=== PATIENT | male | born 1995 | race Caucasian/White ===

== ENCOUNTER 2019-09-03 13:10 | Emergency (ER) | payer BC ==
[2019-09-03] MEDS ORDERED: HYDROCODONE/ACETAMINOPHEN 10-325 MG TABLET PO ONE (13:28)
[2019-09-03] MEDS ORDERED: ONDANSETRON 4 MG TAB.RAPDIS PO ONE (13:29)
--- NOTE | 2019-09-03 13:32 | ER Document Report ---
ED Medical Screen (RME) - General Chief Complaint: Flank Pain Stated Complaint: FLANK PAIN,NAUSEA,VOMITING Time Seen by Provider: 09/03/19 13:15 - HPI Notes: 09/03/19 13:28 24-year-old male presents to the emergency room for complaints of left flank pain radiating to his abdomen and complaining of bilateral testicular pain since 10:00 this morning. States that he was able to void this morning but has been unable to void since then. Denies any trauma to his abdomen or to his testicles. Reports pain is 5 out of 5. Denies any history of kidney stones, denies any abdominal surgeries. Denies any fevers or chills. Reports he is also vomiting with nausea. Denies any fevers or chills. Has not tried any [id number] medications. I have greeted and performed a rapid initial assessment of this patient. Due to being in triage, without an examination table, unable to perform a examination at this time. A comprehensive ED assessment and evaluation of the patient, analysis of test results and completion of the medical decision making process will be conducted by additional ED providers. PHYSICAL EXAMINATION: GENERAL: Well-appearing, well-nourished and in moderate distress, diaphoretic HEAD: Atraumatic, normocephalic. EYES: Pupils equal round extraocular movements intact, conjunctiva are normal. NECK: Normal range of motion CV: s1, s2 regular LUNGS: No respiratory distress abd: Less CVA tenderness on palpation, left lower quadrant abdominal pain on palpation, left upper quadrant abdominal pain on palpation. 09/03/19 13:30 Physical Exam - Vital signs Vitals: Temp Pulse Resp BP Pulse Ox 97.4 F 52 L 18 141/102 H 97 09/03/19 13:17 09/03/19 13:17 09/03/19 13:17 09/03/19 13:17 09/03/19 13:17 Course - Vital Signs Vital signs: Temp Pulse Resp BP Pulse Ox 97.4 F 52 L 18 141/102 H 97 09/03/19 13:17 09/03/19 13:17 09/03/19 13:17 09/03/19 13:17 09/03/19 13:17
[2019-09-03] MEDS ORDERED: KETOROLAC TROMETHAMINE INJ/PF 30 MG/1 ML SDV IV ONE (13:53)
[2019-09-03 14:01] LABS: ABSOLUTE BASOPHILS # (AUTO) 0.1 10^3/uL (0.0-0.2); ABSOLUTE EOSINOPHILS # (AUTO) 0.1 10^3/uL (0.0-0.6); ABSOLUTE LYMPHOCYTES (AUTO) 1.8 10^3/uL (0.5-4.7); ABSOLUTE MONOCYTES (AUTO) 0.7 10^3/uL (0.1-1.4); ABSOLUTE NEUT (AUTO) 11.6 10^3/uL (1.7-8.2); BASOPHILS % (AUTO) 0.5 % (0-2); EOSINOPHILS % (AUTO) 0.7 % (0-6); HEMATOCRIT 43.5 % (37.9-51.0); HEMOGLOBIN 14.9 g/dL (13.5-17.0); LYMPHOCYTES % (AUTO) 12.8 % (13-45); MEAN CORPUSCULAR HEMOGLOBIN 29.4 pg (27.0-33.4); MEAN CORPUSCULAR HGB CONC 34.3 g/dL (32.0-36.0); MEAN CORPUSCULAR VOLUME 86 fl (80-97); PLATELET COUNT 336 10^3/uL (150-450); RED BLOOD COUNT 5.07 10^6/uL (4.35-5.55); RED CELL DISTRIBUTION WIDTH 13.4 % (11.5-14.0); TOTAL CELLS COUNTED % (AUTO) 100 %; WHITE BLOOD COUNT 14.4 10^3/uL (4.0-10.5)
[2019-09-03 14:21] LABS: ALBUMIN 4.7 g/dL (3.5-5.0); ALKALINE PHOSPHATASE 88 U/L (38-126); ANION GAP 9 (5-19); ASPARTATE AMINO TRANSFERASE 29 U/L (17-59); BILIRUBIN,TOTAL 0.7 mg/dL (0.2-1.3); BLOOD UREA NITROGEN 13 mg/dL (7-20); CALCIUM 9.7 mg/dL (8.4-10.2); CARBON DIOXIDE 25 mmol/L (22-30); CHLORIDE 106 mmol/L (98-107); GLUCOSE 120 mg/dL (75-110); POTASSIUM 4.4 mmol/L (3.6-5.0); TOTAL PROTEIN 8.1 g/dL (6.3-8.2)
--- NOTE | 2019-09-03 14:58 | RADIOLOGY REPORT (SQ) ---
EXAM DESCRIPTION: U/S SCROTUM W/DOPPLER IMAGES COMPLETED DATE/TIME: 09/03/2019 2:35 pm REASON FOR STUDY: bilateral testicular pain, can't void, [id number] COMPARISON: None. TECHNIQUE: Static and realtime paz scale imaging of the scrotum and testes. Selected color Doppler and spectral images recorded to document blood flow. LIMITATIONS: Patient movement. FINDINGS: RIGHT: TESTICLE: Normal size. Normal echotexture. Normal blood flow. No mass. EPIDIDYMIS: Normal. HYDROCELE OR VARICOCELE: No. HERNIA OR EXTRA-TESTICULAR MASS: No. OTHER: No other significant finding. LEFT: TESTICLE: Normal size. Normal echotexture. Normal blood flow. No mass. EPIDIDYMIS: Normal. HYDROCELE OR VARICOCELE: No. HERNIA OR EXTRA-TESTICULAR MASS: No. OTHER: There is questionable thickening of the wall of the scrotum that measures 6 mm. IMPRESSION: Normal testicles. No evidence of epididymitis. Questionable thickening of the wall of the scrotum measuring 6 mm. TECHNICAL DOCUMENTATION: JOB ID: [id number] 2010 [employer]- All Rights Reserved Reading location - IP/workstation name: [email or web address]
[2019-09-03 15:03] LABS: APPEARANCE,URINE CLEAR; BILIRUBIN,URINE NEGATIVE (NEGATIVE); CALCIUM OXALATE CRYSTALS,URINE FEW /HPF; COLOR,URINE YELLOW; GLUCOSE, URINE NEGATIVE (NEGATIVE); KETONES,URINE NEGATIVE (NEGATIVE); LEUKOCYTE ESTERASE,URINE NEGATIVE (NEGATIVE); NITRITE,URINE NEGATIVE (NEGATIVE); PROTEIN,URINE 30 mg/dL (NEGATIVE); URINE SPECIFIC GRAVITY 1.028; UROBILINOGEN,URINE NEGATIVE mg/dL (<2.0)
--- NOTE | 2019-09-03 15:07 | RADIOLOGY REPORT (SQ) ---
EXAM DESCRIPTION: CT ABD/PELVIS WITH IV ONLY IMAGES COMPLETED DATE/TIME: 09/03/2019 2:42 pm REASON FOR STUDY: Left flank pain, radiating to abd, +vomiting COMPARISON: None. TECHNIQUE: CT scan of the abdomen and pelvis performed using helical scanning technique with dynamic intravenous contrast injection. No oral contrast. Images reviewed with lung, soft tissue, and bone windows. Reconstructed coronal and sagittal MPR images reviewed. Delayed images for evaluation of the urinary system also acquired. All images stored on PACS. All CT scanners at this facility use dose modulation, iterative reconstruction, and/or weight based d osing when appropriate to reduce radiation dose to as low as reasonably achievable (ALARA). [facility]: Dose Right [facility]: CareDose [facility]: Dose Right [facility]: Teradose 4D [facility]: [employer] CONTRAST TYPE AND DOSE: contrast/concentration: Isovue 350.00 mmol/ml; Total Contrast Delivered: 100 .0 ml; Total Saline Delivered: 25.3 ml RENAL FUNCTION: None required. The patient is less than 50 years old. RADIATION DOSE: CT Rad equipment meets quality standard of care and radiation dose reduction techniq ues were employed. CTDIvol: 19.2 - 21.1 mGy. DLP: 2552 mGy-cm.. LIMITATIONS: None. FINDINGS: LOWER CHEST: No significant findings. No nodules or infiltrates. LIVER: The liver is diffusely, mildly hypoattenuating. No masses. SPLEEN: Normal size. No focal lesions. PANCREAS: No masses. No significant calcifications. No adjacent inflammation or peripancreatic fluid collections. Pancreatic duct not dilated. GALLBLADDER: No identified stones by CT criteria. No inflammatory changes to suggest cholecystitis. ADRENAL GLANDS: No significant masses or asymmetry. RIGHT KIDNEY AND URETER: No solid masses. No significant calcifications. No hydronephrosis or hyd roureter. LEFT KIDNEY AND URETER: No solid masses. Somewhat ill-defined opacification. No significant excreti on of contrast on the delayed images. Mild perinephric stranding. No significant calcifications. No hydronephrosis or hydroureter. AORTA AND VESSELS: No aneurysm. No dissection. Renal arteries, SMA, celiac without stenosis. RETROPERITONEUM: No retroperitoneal adenopathy, hemorrhage or masses. BOWEL AND PERITONEAL CAVITY: No masses or inflammatory changes. No free fluid or peritoneal masses. APPENDIX: Normal. PELVIS: The bladder is incompletely filled. Cannot exclude a bladder wall nodule posterolaterally on the left. See image 93 series 5. ABDOMINAL WALL: No masses. No hernias. BONES: No significant or acute findings. OTHER: No other significant finding. IMPRESSION: 1. There appears to be mild hepatic steatosis. 2. Possible left pyelonephritis. 3. Cannot exclude a nodule in the wall of the bladder posterolaterally on the left. The bladder is incompletely distended. TECHNICAL DOCUMENTATION: JOB ID: [id number] Quality ID # [id number]: Final reports with documentation of one or more dose reduction techniques (e.g., Au tomated exposure control, adjustment of the mA and/or kV according to patient size, use of iterative reconstruction technique) 2010 [employer]- All Rights Reserved Reading location - IP/workstation name: [email or web address]
[2019-09-03] MEDS ORDERED: CEFTRIAXONE 1 GM/D5W RTU 1 GM/50 ML RTUPB IV ONE (16:08)
--- NOTE | 2019-09-03 16:17 | ER Document Report ---
Doctor's Note Notes: 09/03/19 16:15 This generally healthy 24-year-old male with flank pain radiating to left testicle and nausea and vomiting intermittently for several days I was asked to see by midlevel provider. He appears nontoxic and has equivocal left CVA tenderness and is also afebrile. His white count was slightly elevated. His urinalysis is unremarkable. His creatinine is normal. Noncontrast CT abdomen/pelvis suggests a left-sided pyelonephritis with no obstructing stone visualized. I think in all probability he passed a stone and may now have UTI. I recommend we give him some IV Rocephin here and hydrated with additional liter of fluid. We will then send him out him antibiotics pain meds and nausea meds and have him follow-up with urology within the next 24 hours.
[2019-09-03 16:21] LABS: CHLAM PCR NOT DETECTED (NOT DETECT)
--- NOTE | 2019-09-03 17:00 | ER Document Report ---
ED GI/ - General Chief Complaint: Flank Pain Stated Complaint: FLANK PAIN,NAUSEA,VOMITING Time Seen by Provider: 09/03/19 13:15 Primary Care Provider: SHIVAM ZEPEDA MD [NO LOCAL MD] - Follow up in 3-5 days (Call office tomorrow for an outpatient follow-up appointment.) PANCHO MCKENZIE MD [Primary Care Provider] - Follow up as needed Mode of Arrival: Ambulatory Information source: Patient Notes: 24-year-old male past medical history significant for depression and bipolar has a history of previously elevated blood pressures but not currently on any medications for hypertension presents to the emergency room with sudden onset of left flank pain that radiates into his left testicle. He became nauseous and vomited once at home. Attempted take Aleve but vomited that up. Denies any penile discharge. Denies any fevers. Denies any urinary symptoms. No history of kidney stones. TRAVEL OUTSIDE OF THE [place] IN LAST 30 DAYS: No - Related Data Allergies/Adverse Reactions: No Known Allergies Allergy (Unverified 09/03/19 17:32) Past Medical History - General Information source: Patient - Social History Smoking Status: Never Smoker Frequency of alcohol use: None Drug Abuse: None Family History: Other - Kidney stones Patient has homicidal ideation: No Review of Systems - Review of Systems Constitutional: No symptoms reported Cardiovascular: No symptoms reported Respiratory: No symptoms reported Genitourinary: Flank pain Male Genitourinary: Testicular pain Musculoskeletal: No symptoms reported Skin: No symptoms reported Neurological/Psychological: No symptoms reported -: Yes All other systems reviewed and negative Physical Exam - Vital signs Vitals: Temp Pulse Resp BP Pulse Ox 97.4 F 52 L 18 141/102 H 97 09/03/19 13:17 09/03/19 13:17 09/03/19 13:17 09/03/19 13:17 09/03/19 13:17 - General General appearance: Appears well, Alert In distress: Mild - Respiratory Respiratory status: No respiratory distress Chest status: Nontender Breath sounds: Normal Chest palpation: Normal - Cardiovascular Rhythm: Bradycardia Heart sounds: Normal auscultation Friction rub: No Gallop: None auscultated - Abdominal Inspection: Normal Distension: No distension Bowel sounds: Normal Tenderness: Nontender Organomegaly: No organomegaly - Genitourinary Inspection: Normal Tenderness: Nontender Cremasteric reflex: Normal Scrotum: Normal. No: Swelling, Redness - Back Back: Normal, Nontender, CVA tenderness - Left CVA tenderness. No: Vertebra tenderness - Neurological Neuro grossly intact: Yes Cognition: Normal Orientation: AAOx4 May Coma Scale Eye Opening: Spontaneous [place] Coma Scale Verbal: Oriented May Coma Scale Motor: Obeys Commands Spring Coma Scale Total: 15 Speech: Normal Motor strength normal: LUE, RUE, LLE, RLE Sensory: Normal - Skin Skin Temperature: Warm Skin Moisture: Dry Skin Color: Normal Course - Re-evaluation Re-evalutation: 09/03/19 16:55 Patient is resting comfortably. He is afebrile, he is nontoxic-appearing, able to urinate without difficulty. Reviewed all test results with patient. Case was staffed with ED physician Dr. Joseph who also saw and evaluated the patient. Patient was given IV Rocephin will be discharged home on p.o. Keflex, [place], as well as Zofran for his nausea. Patient with asymptomatic hypertension. Denies any chest pain, no shortness of breath. States his blood pressure has been elevated the doctor's office in the past. He will make a follow-up appointment with his primary care physician to address his blood pressure. Patient is aware of the need to call [facility] urology for an outpatient follow-up appointment. Patient was given strict return to the emergency room guidelines. Return for any new or worsening symptoms. All questions were answered. Patient verbalized understanding and agrees with plan of care. 09/03/19 20:17 - Vital Signs Vital signs: Temp Pulse Resp BP Pulse Ox 97.4 F 108 H 20 176/96 H 98 09/03/19 13:17 09/03/19 17:27 09/03/19 17:27 09/03/19 17:27 09/03/19 17:27 - Laboratory Result Diagrams: 09/03/19 13:49 09/03/19 13:49 Laboratory results interpreted by me: 09/03/19 09/03/19 09/03/19 13:49 13:49 14:15 WBC 14.4 H Lymph % (Auto) 12.8 L Absolute Neuts (auto) 11.6 H Seg Neutrophils % 81.0 H Glucose 120 H Urine Protein 30 H Urine Ascorbic Acid 40 H - Diagnostic Test Radiology reviewed: Reports reviewed - Consults Dr. Zepeda Time consulted: 16:58 Consulted provider: follow-up in office Discharge - Discharge Clinical Impression: Pyelonephritis of left kidney, Scrotal swelling, Elevated blood pressure reading without diagnosis of hypertension Condition: Stable Disposition: HOME, SELF-CARE Instructions: Pyelonephritis ([facility]), High Blood Pressure ([facility]) Additional Instructions: Medications as prescribed. Call urology as discussed for an outpatient follow- up appointment. Return to the emergency room for any new or worsening symptoms. Prescriptions: Ondansetron [Zofran Odt 4 mg Tablet] 1 tab PO Q4HP PRN #10 tab.rapdis PRN Reason: Cephalexin Monohydrate [Keflex 500 mg Capsule] 500 mg PO QID #40 capsule Hydrocodone/Acetaminophen [[place] 5-325 Tablet] 1 each PO Q6H PRN #12 tablet PRN Reason: For Pain Forms: Elevated Blood Pressure Referrals: PANCHO MCKENZIE MD [Primary Care Provider] - Follow up as needed SHIVAM ZEPEDA MD [NO LOCAL MD] - Follow up in 3-5 days (Call office tomorrow for an outpatient follow-up appointment.)
[2019-09-03 17:32] VITALS: BP 176/96
== END 2019-09-03 17:39 | disposition home or self-care (01) ==
LOC: ER 13:10
DX: N12 Tubulo-interstitial nephritis, not specified as acute or chronic (principal); N50.89 Other specified disorders of the male genital organs; R03.0 Elevated blood-pressure reading, without diagnosis of hypertension; R10.9 Unspecified abdominal pain; R11.2 Nausea with vomiting, unspecified; N50.812 Left testicular pain; N50.811 Right testicular pain
CPT/HCPCS: 99284; 96375; 96365; 36415; 83690; 85025; 80053; 81001; 87491; 87591; 76870; 93976; 74177; S0119; J1885; J0696